=== PATIENT | male | born 1945 | race Caucasian/White ===

== ENCOUNTER 2024-12-29 16:42 | Emergency (ER) | payer MEDICARE ==
[~2024-12-29] VITALS: Ht 170.2 cm; Wt 75.0 kg
[2024-12-29 16:46] VITALS: O2SAT 99
[2024-12-29] MEDS: MAGNESIUM/ALUMINUM HYDROXIDE/SIMETHICONE 30ML UDC PO ONE (18:29)
[2024-12-29] MEDS: NITROGLYCERIN OINT 1GM/INCH UDPKT TD ONE (18:30)
[2024-12-29] MEDS: FAMOTIDINE 20MG TABLET PO ONE (18:30)
[2024-12-29 18:51] VITALS: BP 150/80; PULSE 80; RESP 16; TEMP 36.6; O2SAT 99
== END 2024-12-29 19:12 | disposition left against medical advice (07) ==
LOC: ER 16:42
DX: R07.9 Chest pain, unspecified (principal); E11.9 Type 2 diabetes mellitus without complications; F19.90 Other psychoactive substance use, unspecified, uncomplicated; Z98.890 Other specified postprocedural states; Z95.1 Presence of aortocoronary bypass graft
CPT/HCPCS: 71045; 93005; 99284